=== PATIENT | male | born 1985 | race Caucasian/White ===

== ENCOUNTER 2018-08-24 12:10 | Day surgery (SDC) | payer BC ==
[2018-08-23 08:30] VITALS: BMI 26.1
[~2018-08-24 12:10] MED LIST: DEXAMETHASONE SOD PHOSPHATE 10 MG/ML 1 ML VIAL IV ONE; HYDROmorphone 0.5 MG/0.5 ML SYRINGE IVP PRN; LACTATED RINGERS 1,000 ML IV SCH; LIDOCAINE 1% 20 ML VIAL (10MG/ML) FOR IV START INTRADERMA PRN; ONDANSETRON 4 MG/2 ML VIAL IVP ONE; SCOPOLAMINE 1.5MG/72HR PATCH TRANSDERM ONE
[2018-08-24 12:42] VITALS: TEMP 97.6
[2018-08-24] MEDS ORDERED: PROPOFOL 10 MG/ML 20 ML VIAL IV ONE (13:04)
[2018-08-24] MEDS ORDERED: GLUCAGON 1 MG/ML VIAL ONE (13:04)
[2018-08-24] MEDS ORDERED: LIDOCAINE 1% INJ 10MG/ML (20 ML MDV) ONE (13:04)
--- NOTE | 2018-08-24 13:07 | P.GSHP ---
History of Present Illness H&P Date: 08/24/18 Chief Complaint: GI bleed This is a 33-year-old male who presents today for colonoscopy. Patient had issues with rectal bleeding. Past Medical History Past Medical History: Skin Disorder Additional Past Medical History / Comment(s): currently having bleeding with stools,areas to scalp-following with rhinestone setter History of Any Multi-Drug Resistant Organisms: None Reported Past Surgical History: No Surgical Hx Reported Past Anesthesia/Blood Transfusion Reactions: No Reported Reaction Additional Past Anesthesia/Blood Transfusion Reaction / Comment(s): no hx anesthesia Smoking Status: Never smoker - Past Family History Mother Family Medical History: No Reported History Medications and Allergies Home Medications Medication Instructions Recorded Confirmed Type No Known Home Medications 08/23/18 08/24/18 History Allergies Allergy/AdvReac Type Severity Reaction Status Date / Time No Known Allergies Allergy Verified 08/24/18 12:32 Surgical - Exam Vital Signs Temp Pulse Resp BP Pulse Ox 97.6 F 68 16 134/81 99 08/24/18 12:41 08/24/18 12:41 08/24/18 12:41 08/24/18 12:41 08/24/18 12:41 - General well developed, no distress - Eyes PERRL - ENT normal pinna - Neck no masses - Respiratory normal expansion - Cardiovascular Rhythm: regular - Abdomen Abdomen: soft, non tender Assessment and Plan Assessment: He had bleed. We'll perform colonoscopy.
--- NOTE | 2018-08-24 13:23 | P.OP ---
Date of Procedure: 08/24/18 Preoperative Diagnosis: GI bleed Postoperative Diagnosis: Sigmoid colon polyp Procedure(s) Performed: Colonoscopy Anesthesia: MAC Surgeon: Sascha Christensen Pathology: other (Sigmoid colon polyp) Condition: stable Disposition: PACU Description of Procedure: The patient's placed on the endoscopy table in the lateral position. He received IV sedation. Digital rectal exam was performed which revealed no abnormalities. The flexible colonoscope was then placed patient anus and passed throughout the entire colon. The ileocecal valve was visually. The cecum, ascending and transverse colon appeared normal. The descending colon was normal. In the sigmoid colon there was a pedunculated polyp this was removed with the snare. The scope was then withdrawn the rectum and this appeared normal. Scope withdrawn for patient. There is no evidence of GI bleed. It is presumed that the patient had some bleeding from his polyp.
[2018-08-24 13:48] VITALS: PULSE 78; RESP 18
[2018-08-24 13:56] VITALS: BP 125/78
== END 2018-08-24 14:12 | disposition home or self-care (01) ==
LOC: ORWHC2ENDO 12:10
PROVIDERS: ATTEND Surgery
DX: K63.5 Polyp of colon (principal); J30.9 Allergic rhinitis, unspecified; E66.9 Obesity, unspecified; Z68.26 Body mass index [BMI] 26.0-26.9, adult; L98.9 Disorder of the skin and subcutaneous tissue, unspecified; Z79.899 Other long term (current) drug therapy
CPT/HCPCS: 88305; 45385; J1610; J2001; J2704

== ENCOUNTER 2022-01-18 21:57 | Emergency (ER) | payer BC ==
[2022-01-18 22:23] VITALS: RESP 18; TEMP 98.4
[2022-01-19] MEDS ORDERED: diphenhydrAMINE 50 MG/ML 1 ML VIAL IM STA (01:27)
[2022-01-19] MEDS ORDERED: FAMOTIDINE 20 MG TAB PO STA (01:27)
[2022-01-19] MEDS ORDERED: methylPREDNISolone SOD SUCCI 125 MG/2 ML VIAL IM STA (01:27)
--- NOTE | 2022-01-19 01:30 | ED ---
ENT HPI - General Chief complaint: ENT Stated complaint: TAMI/Throat Swelling/Allergies Time Seen by Provider: 01/19/22 01:09 Source: patient, RN notes reviewed Mode of arrival: ambulatory - History of Present Illness Initial comments: Patient with a history of seasonal ALLERGIES presents to emergency department complaining of irritation to his throat. He states over the last few days she's had increased postnasal drainage but states earlier tonight he had sensation that he had some swelling in his throat. Patient states she felt it was a little hard to breathe. However he had no wheezing. Patient states he did take some Benadryl earlier in the day and took some ibuprofen on arrival here which seems to be helping. Patient denying any pain. Denies any significant past medical history other than the ALLERGIC rhinitis. Nonsmoker. No alcohol or drug abuse. No headache, no fever or chills, no changes in vision or hearing, , no neck pain, no chest pain or shortness of breath, no abdominal pain, no nausea or vomiting, no changes in urination or bowel movements, no numbness or tingling, no extremity pain, no skin rashes or lesions. - Related Data Previous Rx's Medication Instructions Recorded Famotidine [Pepcid] 20 mg PO BID #10 tablet 01/19/22 Fexofenadine HCl [Johana Allergy] 180 mg PO DAILY #30 tab 01/19/22 predniSONE 50 mg PO DAILY #4 tab 01/19/22 Allergies Allergy/AdvReac Type Severity Reaction Status Date / Time No Known Allergies Allergy Verified 01/18/22 22:23 Review of Systems ROS Statement: Those systems with pertinent positive or pertinent negative responses have been documented in the HPI. ROS Other: All systems not noted in ROS Statement are negative. Past Medical History Past Medical History: Skin Disorder Additional Past Medical History / Comment(s): currently having bleeding with stools,areas to scalp-following with out patient therapist History of Any Multi-Drug Resistant Organisms: None Reported Past Surgical History: No Surgical Hx Reported Past Anesthesia/Blood Transfusion Reactions: No Reported Reaction Additional Past Anesthesia/Blood Transfusion Reaction / Comment(s): no hx anesthesia Smoking Status: Never smoker Past Alcohol Use History: Occasional Past Drug Use History: None Reported - Past Family History Mother Family Medical History: No Reported History General Exam - General Exam Comments Initial Comments: Patient in no distress. Does not appear to be ill or toxic. Vital signs reviewed General appearance: alert, in no apparent distress Head exam: Present: atraumatic, normocephalic, normal inspection Eye exam: Present: normal appearance, PERRL, EOMI. Absent: scleral icterus, conjunctival injection, periorbital swelling ENT exam: Present: mucous membranes moist, TM's normal bilaterally, normal external ear exam. Absent: normal oropharynx (Patient has a mild edema to the uvula and adjacent structures. No evidence of compromised airway. No evidence of oral cellulitis. No exudate. No evidence of peritonsillar abscess. No evidence of deep space tissue infection), mucous membranes dry Neck exam: Present: normal inspection. Absent: tenderness, meningismus, lymphadenopathy Respiratory exam: Present: normal lung sounds bilaterally. Absent: respiratory distress, wheezes, rales, rhonchi, stridor Cardiovascular Exam: Present: regular rate, normal rhythm, normal heart sounds. Absent: systolic murmur, diastolic murmur, rubs, gallop, clicks GI/Abdominal exam: Present: soft, normal bowel sounds. Absent: distended, tenderness, guarding, rebound, rigid Extremities exam: Present: normal inspection, full ROM, normal capillary refill. Absent: tenderness, pedal edema, joint swelling, calf tenderness Back exam: Present: normal inspection Neurological exam: Present: alert, oriented X3, CN II-XII intact Psychiatric exam: Present: normal affect, normal mood Skin exam: Present: warm, dry, intact, normal color. Absent: rash Course Vital Signs 01/18/22 01/19/22 22:19 01:51 Temperature 98.4 F Pulse Rate 78 64 Respiratory 18 18 Rate Blood Pressure 136/85 O2 Sat by Pulse 98 98 Oximetry - Reevaluation(s) Reevaluation #1: 01/19/22 02:24 Medical record is reviewed Symptoms are improved here in the emergency department Patient is informed of results and questions answered Patient in no distress Medical Decision Making - Medical Decision Making Patient's symptoms consistent with nonspecific uvulitis. We'll treat with antihistamines, corticosteroids, and appeared of observation. - Lab Data Lab Results 01/18/22 01/18/22 01/18/22 Range/Units 22:28 22:28 22:28 Coronavirus (PCR) Not Detected (Not Detectd) Influenza Type A RNA Not Detected (Not Detectd) Influenza Type B (PCR) Not Detected (Not Detectd) Group A Strep Rapid Negative (Negative) Disposition Clinical Impression: Post-nasal drainage, Uvulitis Disposition: HOME SELF-CARE Condition: Good Instructions (If sedation given, give patient instructions): Allergic Rhinitis (ED), Uvulitis (ED) Additional Instructions: Your exam is consistent with uvulitis, likely related to a local ALLERGIC reaction. Take the corticosteroids as directed. Continue your daily antihistamine. Take the Pepcid as directed. Follow-up with your regular physician. Call in the morning for follow-up appointment. Follow-up with your regular physician as directed. Return to the ER immediately if any symptoms worsen, new symptoms arise, or any other problems develop. Is patient prescribed a controlled substance at d/c from ED?: No Referrals: Pual Cunningham MD [Primary Care Provider] - 01/21/22 Jason Malin MD [STAFF PHYSICIAN] - As Soon As Possible
[2022-01-19 02:46] VITALS: BP 128/87; PULSE 56
== END 2022-01-19 02:46 | disposition home or self-care (01) ==
LOC: EC 21:57
DX: R09.82 Postnasal drip (principal); K12.2 Cellulitis and abscess of mouth; Z20.822 Contact with and (suspected) exposure to COVID-19
CPT/HCPCS: 99283; 96372; 87081; 87430; 87502; 87635; J1200; J2930

== ENCOUNTER 2023-07-22 07:11 | Day surgery (SDC) | payer BC ==
[2023-07-22] MEDS ORDERED: LIDOCAINE 1% (10MG/ML) FOR IV START INTRADERMA PRN (07:33)
[2023-07-22] MEDS ORDERED: LACTATED RINGERS 1,000 ML IV SCH (07:33)
[2023-07-22 07:52] VITALS: RESP 16; TEMP 97.5
--- NOTE | 2023-07-22 07:52 | P.GSHP ---
History of Present Illness H&P Date: 07/22/23 Chief Complaint: History of colon polyps This a 38-year-old male with previous history of colon polyps. Patient presents today for colonoscopy. Past Medical History Past Medical History: GI Bleed, Skin Disorder Additional Past Medical History / Comment(s): Routine colonoscopy/hx benign polyps, past bleeding with stools History of Any Multi-Drug Resistant Organisms: None Reported Past Surgical History: No Surgical Hx Reported Additional Past Surgical History / Comment(s): colonoscopies Past Anesthesia/Blood Transfusion Reactions: No Reported Reaction Additional Past Anesthesia/Blood Transfusion Reaction / Comment(s): no hx anesthesia Smoking Status: Never smoker - Past Family History Mother Family Medical History: No Reported History Medications and Allergies Home Medications Medication Instructions Recorded Confirmed Type Fexofenadine HCl [Johana Allergy] 180 mg PO DAILY #30 tab 01/19/22 07/22/23 Rx Allergies Allergy/AdvReac Type Severity Reaction Status Date / Time Sulfa (Sulfonamide Allergy Rash/Hives Verified 07/22/23 07:29 Antibiotics) Surgical - Exam Vital Signs Temp Pulse Resp BP Pulse Ox 97.5 F L 64 16 126/78 96 07/22/23 07:28 07/22/23 07:28 07/22/23 07:28 07/22/23 07:28 07/22/23 07:28 - General well developed, well nourished, no distress - Eyes PERRL - ENT normal pinna - Neck no masses - Respiratory normal expansion - Cardiovascular Rhythm: regular - Abdomen Abdomen: soft, non tender Assessment and Plan Assessment: History of colon polyps. We'll perform colonoscopy.
[2023-07-22] MEDS ORDERED: PROPOFOL 10 MG/ML 20 ML VIAL IV ONE (07:53)
--- NOTE | 2023-07-22 08:12 | P.OP ---
Date of Procedure: 07/22/23 Preoperative Diagnosis: Screening colonoscopy Postoperative Diagnosis: Normal colon Procedure(s) Performed: Colonoscopy Anesthesia: MAC Surgeon: Sascha Christensen Pathology: none sent Condition: stable Disposition: PACU Description of Procedure: PROCEDURE: The patient was placed on the endoscopy table in the lateral position. Digital rectal examination was performed which revealed no abnormalities. The prostate was symmetrical without nodules. Flexible colonoscope was then placed in the patient's anus and passed throughout the entire colon. The ileocecal valve was visualized. The cecum, ascending, transverse, descending and sigmoid colon were normal. The rectum was normal as well. There were no masses, polyps or diverticula noted in the entire colon. SUMMARY OF FINDINGS: Normal colonoscopy.
[2023-07-22 09:09] VITALS: BP 138/80; PULSE 67
== END 2023-07-22 09:22 | disposition home or self-care (01) ==
LOC: ORWHC2ENDO 07:11
PROVIDERS: ATTEND Surgery
DX: Z12.11 Encounter for screening for malignant neoplasm of colon (principal); Z88.2 Allergy status to sulfonamides; Z88.1 Allergy status to other antibiotic agents; Z86.010 Personal history of colon polyps; Z79.899 Other long term (current) drug therapy
CPT/HCPCS: 45378; J2704